=== PATIENT | male | born 1930 | race Caucasian/White ===

== ENCOUNTER → 2016-11-13 | Outpatient (CLI) | payer MEDICARE, BC | LOC: RAD 13:48 | DX: R22.42 Localized swelling, mass and lump, left lower limb (principal) ==

== ENCOUNTER → 2017-01-10 | Outpatient (CLI) | payer MEDICARE, BC | LOC: LAB 11:31 | DX: D50.0 Iron deficiency anemia secondary to blood loss (chronic) (principal); R39.15 Urgency of urination; D64.9 Anemia, unspecified; Z90.89 Acquired absence of other organs ==

== ENCOUNTER → 2017-01-16 | Outpatient (CLI) | payer MEDICARE, BC | LOC: LAB 08:22 | DX: R53.81 Other malaise (principal); D64.9 Anemia, unspecified ==

== ENCOUNTER → 2017-02-04 | Outpatient (CLI) | payer MEDICARE, BC | LOC: LAB 10:05 | DX: D50.0 Iron deficiency anemia secondary to blood loss (chronic) (principal) ==

== ENCOUNTER → 2017-03-03 | Outpatient (CLI) | payer MEDICARE, BC | LOC: LAB 12:09 | DX: D50.0 Iron deficiency anemia secondary to blood loss (chronic) (principal) ==

== ENCOUNTER → 2017-05-14 | Outpatient (CLI) | payer MEDICARE, BC | LOC: LAB 09:57 | DX: D50.0 Iron deficiency anemia secondary to blood loss (chronic) (principal) ==

== ENCOUNTER → 2017-11-13 | Outpatient (CLI) | payer MEDICARE, BC ==
[2017-11-13 14:33] LABS: HEMATOCRIT 35.6 % (42.0-52.0); HEMOGLOBIN 11.5 g/dL (13.5-18.0); MEAN CELL VOLUME 102 fl (78-100); MEAN CORPUSCULAR HEMOGLOBIN 33 pg (27-31); MEAN CORPUSCULAR HGB CONC 32 g/dL (33-37); MEAN PLATELET VOLUME 9.5 fl (7.4-10.4); PLATELET COUNT 207 K/mm3 (130-400); RED BLOOD COUNT 3.48 M/mm3 (4.20-5.60); RED CELL DISTRIBUTION WIDTH 15.1 % (11.5-14.5); WHITE BLOOD COUNT 5.1 K/mm3 (4.8-10.8)
[2017-11-13 14:47] LABS: URINE APPEARANCE CLEAR; URINE COLOR YELLOW
[2017-11-13 14:48] LABS: BUN/CREATININE RATIO 19.2 (6.0-26.0); CALCIUM 8.6 mg/dL (8.4-10.2); POTASSIUM 4.4 mmol/L (3.6-5.0); URINE BILIRUBIN NEGATIVE (NEGATIVE); URINE BLOOD 50 ery/uL (NEGATIVE); URINE GLUCOSE NEGATIVE (NEGATIVE); URINE KETONE NEGATIVE (NEGATIVE); URINE LEUKOCYTE ESTERASE NEGATIVE (NEGATIVE); URINE MUCUS PRESENT (NOT PRESENT); URINE NITRATE NEGATIVE (NEGATIVE); URINE PROTEIN(semi-quant) NEGATIVE (NEGATIVE); URINE UROBILINOGEN NORMAL (NORMAL)
[2017-11-13 15:12] LABS: ACANTHROCYTES 1+; LYMPHOCYTE 35 % (20-51); MONOCYTE 10 % (3-10); NEUTROPHILS 54 % (42-75); OVALOCYTES 1+
== END ==
LOC: LAB 14:15
PROVIDERS: Nurse Practitioner Family
DX: R10.32 Left lower quadrant pain (principal); R30.0 Dysuria

== ENCOUNTER → 2017-12-31 | Outpatient (CLI) | payer MEDICARE, BC | LOC: RAD 15:21 | DX: M51.36 Other intervertebral disc degeneration, lumbar region (principal); M16.0 Bilateral primary osteoarthritis of hip ==

== ENCOUNTER → 2018-01-05 | Outpatient (CLI) | payer MEDICARE, BC | LOC: RAD 12:00 | DX: M51.17 Intervertebral disc disorders with radiculopathy, lumbosacral region (principal); M48.07 Spinal stenosis, lumbosacral region; M48.8X7 Other specified spondylopathies, lumbosacral region; M70.62 Trochanteric bursitis, left hip; M70.61 Trochanteric bursitis, right hip ==